=== PATIENT | female | born 1945 | race Caucasian/White ===

== ENCOUNTER 2017-05-18 11:54 | Day surgery (SDC) | payer MEDICARE, OTHER ==
[~2017-05-18] VITALS: Ht 167.6 cm; Wt 118.5 kg
[~2017-05-18 11:54] MED LIST: ATOR10TA PO; CELE200C PO; DEXL60CA2 PO; ESTR0.6246 PO; LEVO500P8 IV; LOSA25TA5 PO; symbalta PO
[2017-05-18 12:38] VITALS: BP 145/85
[2017-05-18] MEDS ORDERED: SODIUM CHLORIDE 0.9% 1,000 ML IV SCH (13:00)
[2017-05-18 13:09] LABS: HEMATOCRIT 32.4 % (34.6-47.8); HEMOGLOBIN 11.2 g/dL (11.7-16.4); WHITE BLOOD COUNT 5.2 x10^3/uL (3.4-10)
[2017-05-18] MEDS ORDERED: LIDOCAINE 1%, 20ML ONE (13:39)
[2017-05-18] MEDS ORDERED: FENTANYL PF 100 MCG/2ML ONE (14:05)
[2017-05-18] MEDS ORDERED: MIDAZOLAM 1 MG/ML, 5ML ONE (14:05)
[2017-05-18] MEDS ORDERED: FLUMAZENIL 0.1 MG/1 ML, 5ML ONE (14:05)
[2017-05-18] MEDS ORDERED: NALOXONE 1 MG/ML, 2ML ONE (14:06)
== END 2017-05-18 16:40 | disposition home or self-care (01) ==
LOC: OUT 11:54
PROVIDERS: ATTEND Internal Medicine
DX: D64.9 Anemia, unspecified (principal); E11.9 Type 2 diabetes mellitus without complications; Z98.890 Other specified postprocedural states; Z90.710 Acquired absence of both cervix and uterus; Z90.49 Acquired absence of other specified parts of digestive tract; Z96.652 Presence of left artificial knee joint; Z98.42 Cataract extraction status, left eye; Z98.41 Cataract extraction status, right eye; Z88.0 Allergy status to penicillin; Z88.8 Allergy status to other drugs, medicaments and biological substances; Z88.1 Allergy status to other antibiotic agents; Z91.040 Latex allergy status
CPT/HCPCS: 36415; 38221; 77012; 85025; 85097; 88237; 88264; 88280; 88305; 88311; 88313; G0364; J2250; J3010; J3490; J7030; J2310